=== PATIENT | female | born 1995 | race Caucasian/White ===

== ENCOUNTER 2023-07-21 03:00 | Inpatient (IN) ==
[2023-07-21] MEDS ORDERED: LIDOCAINE 1% LOCAL 20 ML VIAL INFIL PRN (03:59)
[2023-07-21] MEDS ORDERED: LACTATED RINGER'S 1,000 ML IV PRN (03:59)
[2023-07-21] MEDS ORDERED: OXYTOCIN 30 UNITS/NSS 30 UNITS/500 ML BAG IV PRN ×3 (03:59→07:13)
[2023-07-21 04:39] LABS: Hematocrit (blood only) 41.7 % (37.0-47.0); Mean Corpuscular Hemoglobin 30.6 pg (25.0-34.0); Mean Corpuscular Hgb Conc 33.6 g/dL (32.0-36.0); Mean Platelet Volume 12.7 fL (9.4-12.4); Platelet Count 135 K/uL (130-400); RDW Coefficient of Variation 12.6 % (11.5-14.5); RDW Standard Deviation 41.4 fL (36.4-46.3); Red Blood Count 4.58 M/uL (4.20-5.40); White Blood Count 6.27 K/ul (4.8-10.8)
[2023-07-21 04:52] LABS: Albumin Globulin Ratio 1.3 (0.9-2); BUN Creatinine Ratio 18.9 (10-20); Bilirubin,Total 0.4 mg/dl (0.2-1.0); Creatinine Clr Calc Pharmacy 99.8 ml/min; Est GFR (African American) 126.9 ml/min; Est GFR (Non-African American) 109.5 ml/min; Globulin 3.1 gm/dl (2.5-4.0); Potassium 3.8 mmol/L (3.5-5.1); Total Protein 7.1 gm/dl (6.0-8.3)
--- NOTE | 2023-07-21 06:21 | History & Physical Report ---
Date of Service July 21, 2023 Assessment & Plan (1) Gestational diabetes mellitus (GDM) affecting , antepartum: (2) Prior complicated by IUGR, antepartum: Plan Admit to L&D, she'd prefer to try to labor naturally. Does not desire epidural. Labs, EFM/toco. IV access. Admission and Anticipated Discharge Date Admission Date: July 21, 2023 History of Present Illness Chief Complaint: SROM Primary Care Provider: LORRI Ibarra 28yo @ 39 10/18, presented to L&D after clear gush of fluid at home. 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 + movement. No vaginal bleeding. Hx IUGR with prior *growth US @ 32wks. ?covid in early second trimester--never tested. start baby asa GDM w/28wk glucola *Begin monthly Growth US's Allergies Allergy/AdvReac Type Severity Reaction Status Date / Time sesame oil AdvReac Unknown Rash Verified 07/21/23 03:26 amoxicillin AdvReac Rash Verified 07/20/23 14:15 Home Medications Medication Instructions Recorded Confirmed Type vits no.126-ferrous fum 1 tab PO DAILY #90 tabs 11/07/22 07/21/23 Rx 28 mg iron-folic acid 800 mcg tablet (Classic ) acetone (urine) test (Ketone Urine #50 ea 05/31/23 07/20/23 Rx Test strips) blood sugar diagnostic (OneTouch #150 ea 05/31/23 07/20/23 Rx Verio test strips) blood-glucose meter (OneTouch #1 ea 05/31/23 07/20/23 Rx Verio Reflect Meter) lancets 33 gauge (OneTouch Delica #150 ea 05/31/23 07/20/23 Rx Plus Lancet) Patient History Medical History Shingles History of chicken pox Anxiety Insomnia Surgical History [place] teeth extracted Family History Grandmother (Maternal) Breast cancer Grandfather (Paternal) Myocardial infarction Grandfather (Maternal) Myocardial infarction Denies family history of Ovarian cancer Prostate cancer Colorectal cancer Social History Smoking Status: Never smoker Second Hand Exposure: Yes; Do You Dip or Chew Tobacco: No; Hx Alcohol Use: No Hx Substance Use: No Preferred Language: Bulgarian Communication Ability: Effective Visual Impairment: No Limitations Hearing Ability: Normal Sr. 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[employer] How many Children do You have: 1 Other Information That Helps Us Care for You: No Feels Safe at Home: Yes Safety Concerns: Feels Safe At This Time Childhood Exposure to Second-Hand Smoke: No Diet: regular Diet Comment: regular caffeine: No during the past year weight has: other Dental Care, Regularly: No Physical Activity Frequency: Daily Seatbelt Use: always Sunscreen Use: Yes Review of Systems All systems reviewed & are unremarkable except as noted in HPI & below Physical Exam Constitutional: WD/WN, vitals as above Respiratory: normal respiratory effort, lungs clear to auscultation no respiratory distress Cardiovascular: Rate/Rhythm: regular rate and regular rhythm Gastrointestinal (Abdomen): Inspection/Auscultation: abdomen normal to inspection Percussion/Palpation: abdomen soft; abdomen nontender Gravid. No s/s chorio or abruption. Skin: no rashes, warm and dry Psychiatric: A+Ox3, euthymic affect Results & Data Vital Signs (Past 12 Hours) Vital Signs Temp Pulse Resp BP 07/21/23 06:00 36.4 C L 07/21/23 03:27 36.8 C 16 07/21/23 03:18 89 144/89 H Coding Level of Care Code None Diagnoses Gestational diabetes mellitus (GDM) affecting , antepartum O24.419 Prior complicated by IUGR, antepartum O09.299
[2023-07-21] MEDS ORDERED: ACETAMINOPHEN 1,000 MG/100 ML VIAL IV STA (06:28)
--- NOTE | 2023-07-21 06:52 | Delivery Summary ---
Vaginal Delivery Summary Date of Service July 21, 2023 Vaginal Delivery Summary [facility] Vaginal Delivery Summary: Pre-delivery diagnoses: 28yo @ 39 6/7, spontaneous labor, GDMA1 Post-delivery diagnoses: same Procedure: spontaneous vaginal delivery Surgeon: Lesa Henderson DO Complications: none Findings: Viable male . Apgars: 8/9. Weight pending, please see nursery records Estimated blood loss: 300ml Description of delivery: The patient progressed to complete. No epidural. She requested IV pain medications but was too close to delivery. She then began to push in hands and knees position. She spontaneously vaginally delivered a viable from the cephalic presentation. The head delivered, followed by the anterior shoulder and arm, followed by the posterior shoulder, followed by the body. The baby was placed through mother's legs, mom was repositioned into dorsal lithotomy, baby was placed on mom's chest and a spontaneous cry was heard. Delayed cord clamping was employed, and the cord was doubly clamped and cut. A segment was retained for cord gases. Cord blood was obtained. The placenta was delivered spontaneously intact with a 3-vessel cord. The uterus and vagina were swept of clots and debris. IV pitocin was given. The uterus became firm. The cervix, vagina, and perineum were inspected and no lacerations were noted. Excellent hemostasis was observed. The mother and baby are recovering in stable and good condition in the room. Sponge and instrument counts were correct x 2. Lesa Henderson DO [facility] Vaginal Delivery Charge Vaginal Delivery Codes: 78889 global code for the antepartum, delivery, and post- Delivery Type Details: [facility]
[2023-07-21] MEDS ORDERED: KETOROLAC 30 MG/ML VIAL IV PRN (07:12)
[2023-07-21] MEDS ORDERED: DIPHTHER/TETAN/PERTUS Vaccine (Tdap, Adol/Adult) 0.5mL IM ONE (07:13)
[2023-07-21] MEDS ORDERED: ACETAMINOPHEN 325 MG TAB PO PRN (07:13)
[2023-07-21] MEDS ORDERED: oxyCODONE/ACETAMINOPHEN 5mg/325mg TAB PO PRN (07:13)
[2023-07-21] MEDS ORDERED: BENZOCAINE 20% SPRY 85 APPLN/85 GM CAN EXT PRN (07:13)
[2023-07-21] MEDS ORDERED: HYDROCORTISONE ACETATE 25 MG SUPP PR PRN (07:13)
[2023-07-21] MEDS ORDERED: bisacodyL 10 MG SUPP PR PRN (07:13)
[2023-07-21] MEDS: IBUPROFEN 600 MG TAB PO PRN (13:28)
[2023-07-21] MEDS: DOCUSATE SODIUM 100 MG CAP PO SCH (20:26)
[2023-07-22 06:32] LABS: Hematocrit (blood only) 36.3 % (37.0-47.0); Hemoglobin 12.3 g/dl (12.0-16.0)
--- NOTE | 2023-07-22 08:48 | Obstetrical Progress Note ---
Date of Service July 22, 2023 Assessment & Plan (1) Encounter for assessment: visit type: routine follow-up Qualified Code(s): Z39.2 - Encounter for routine follow-up Plan Doing well. Meeting all milestones. Plan d/c. INstructions given. Day #:: 2 Subjective Ambulation: ambulating normally Voiding: no voiding problems Passing Gas:: Yes Diet Tolerance:: regular diet Lochia:: Small Feeding Type:: breast feeding Doing well. Ready for d/c. Physical Exam Respiratory normal respiratory effort, lungs clear to auscultation Cardiovascular RRR, no murmur, no edema Extremities: no calf tenderness and no edema Gastrointestinal (Abdomen) soft, nt, nd, ff/nt several cm below umbilicus Psychiatric A+Ox3, euthymic affect Results & Data Vital Signs (Past 12 Hours) Vital Signs Temp Pulse Resp BP Pulse Ox O2 Del Method 07/22/23 08:05 36.6 C 85 16 122/78 98 Room Air 07/22/23 04:25 36.9 C 75 16 125/78 95 Room Air 07/21/23 23:20 36.5 C 71 15 122/76 95 Room Air 07/21/23 20:10 36.9 C 85 17 127/87 98 Room Air
[2023-07-22] MEDS: PRENATAL VITAMIN 1 TAB PO SCH (08:58)
[2023-07-22] MEDS ORDERED: bisacodyL 5 MG TABEC PO SCH (20:00)
== END 2023-07-22 13:03 | disposition home or self-care (01) | DRG 807 ==
LOC: OPB 03:00 → 4S1 03:04 → 4E2 10:14